=== PATIENT | female | born 1990 | race Caucasian/White ===

== ENCOUNTER 2018-03-16 18:53 | Emergency (ER) | payer OTHER ==
[2018-03-16 19:03] VITALS: BMI 26.2
--- NOTE | 2018-03-16 19:08 | PDOC ---
Rapid Medical Evaluation Chief Complaint: Pain Time Seen by Provider: 03/16/18 19:05 Medical Evaluation: Allergies Allergy/AdvReac Type Severity Reaction Status Date / Time No Known Allergies Allergy Verified 01/26/16 11:46 Vital Signs Temp Pulse Resp BP Pulse Ox 98.5 F 97 H 16 124/79 97 03/16/18 18:58 03/16/18 18:58 03/16/18 18:58 03/16/18 18:58 03/16/18 18:58 03/16/18 19:05 I have performed a brief in-person evaluation of this patient. The patient presents with a chief complaint of:left breast pain radiating to left shoulder and arm for 5 days. Denies cough, SOB, dizziness, fever, chills, sweats, N/V, palpitations , numbness or tingling sensation Pertinent physical exam findings: heart RRR. lungs CTAB I have ordered the following:ekg, uhcg The patient will proceed to the ED for further evaluation Discharge Disposition - Diagnosis Chest wall discomfort - Referrals - Patient Instructions - Post Discharge Activity
--- NOTE | 2018-03-16 20:44 | PDOC ---
History of Present Illness - General Chief Complaint: Pain Stated Complaint: CHEST PAIN Time Seen by Provider: 03/16/18 19:05 - History of Present Illness Initial Comments: The patient is a 27F w/ no reported PMH who presents for evaluation of 2 weeks of L breast pain that radiates towards her left arm. She describes the pain as constant but waxing/waning, described as cramping/squeezing, non-exertional, and worse with palpation. Denies fevers/chills, SOB, abdominal pain, N/V/C/D. Denies having pain like this before. Denies breast pain with menses. Has tried Advil with minimal relief. Denies trauma. 03/16/18 20:54 Past History - Past Medical History Allergies/Adverse Reactions: Allergies Allergy/AdvReac Type Severity Reaction Status Date / Time No Known Allergies Allergy Verified 03/16/18 20:50 Home Medications: Ambulatory Orders NK [No Known Home Medication] 01/26/16 Asthma: No Cancer: No Cardiac Disorders: No COPD: No Diabetes: No HTN: No Seizures: No Thyroid Disease: No - Immunization History Immunization Up to Date: Yes - Suicide/Smoking/Psychosocial Hx Smoking History: Never smoked Have you smoked in the past 12 months: No Number of Cigarettes Smoked Daily: 0 Hx Alcohol Use: No Drug/Substance Use Hx: No Substance Use Type: None Hx Substance Use Treatment: No Review of Systems - Review of Systems Able to Perform ROS?: Yes Comments:: GENERAL/CONSTITUTIONAL: No fever or chills. No weakness HEAD, EYES, EARS, NOSE AND THROAT: No change in vision. No ear pain or discharge. No sore throat CARDIOVASCULAR: No chest pain or shortness of breath GASTROINTESTINAL: No nausea, vomiting, diarrhea or constipation GENITOURINARY: No dysuria, frequency, or change in urination MUSCULOSKELETAL: +L breast/L arm pain SKIN: No rash NEUROLOGIC: No headache, vertigo, loss of consciousness, or change in strength/ sensation ENDOCRINE: No increased thirst. No abnormal weight change HEMATOLOGIC/LYMPHATIC: No anemia, easy bleeding, or history of blood clots ALLERGIC/IMMUNOLOGIC: No hives or skin allergy 03/16/18 21:02 Is the patient limited Iraqi proficient: No *Physical Exam - Vital Signs Last Vital Signs Temp Pulse Resp BP Pulse Ox 98.5 F 97 H 16 124/79 97 03/16/18 18:58 03/16/18 18:58 03/16/18 18:58 03/16/18 18:58 03/16/18 18:58 - Physical Exam Comments: GENERAL: Awake, alert, and fully oriented, in no acute distress HEAD: No signs of trauma, normocephalic, atraumatic EYES: PERRLA, EOMI, sclera anicteric, conjunctiva clear ENT: Hearing grossly normal, nares patent, oropharynx clear without exudates. Moist mucosa LUNGS: No distress, speaks full sentences, clear to auscultation bilaterally HEART: Regular rate and rhythm, normal S1 and S2, no murmurs appreciated, peripheral pulses normal and equal bilaterally ABDOMEN: Soft, nontender, normoactive bowel sounds. No guarding, no rebound EXTREMITIES : Normal inspection, Normal range of motion, no edema. No clubbing or cyanosis NEUROLOGICAL: Cranial nerves II through XII grossly intact. Normal speech, normal gait, no focal sensorimotor deficits SKIN: Warm, Dry, normal turgor, no rashes or lesions noted 03/16/18 21:03 Moderate Sedation - Procedure Monitoring Vital Signs: Procedure Monitoring Vital Signs Temperature 98.5 F 03/16/18 18:58 Pulse Rate 97 H 03/16/18 18:58 Respiratory Rate 16 03/16/18 18:58 Blood Pressure 124/79 03/16/18 18:58 O2 Sat by Pulse Oximetry (%) 97 03/16/18 18:58 ED Treatment Course - LABORATORY CBC & Chemistry Diagram: 03/16/18 21:00 03/16/18 21:00 - ADDITIONAL ORDERS Additional order review: Laboratory Results 03/16/18 19:30 Urine HCG, Qual Negative Medical Decision Making - Medical Decision Making Pt is a 27F with no reported PMH who presents for evaluation of 2 weeks of L breast and L arm pain ED Course CMP, CBC, cardiac enzymes ECG Tylenol 975mg PO once 03/16/18 21:03 No leukocytosis No anemia 03/16/18 21:27 No ARTURO LFTs wnl Trop I neg Lytes wnl 03/16/18 22:02 CXR Toradol 30mg IV once Patient with point tenderness over upper/medial breast at 11 o'clock position -likely costochondritis Patient reports symptoms improved; however continues to have point TTP Will give referral to breast surgeon/PCP for mammogram 03/16/18 22:13 CXR w/o evidence of PNA, PNX, or other acute pathology Plan for D/C w/ PCP and breast f/u Discharge instructions and return precautions given Dispo: Home 03/16/18 22:45 *DC/Admit/Observation/Transfer Diagnosis at time of Disposition: Chest wall discomfort - Discharge Dispostion Condition at time of disposition: Stable Decision to Admit order: No - Referrals Referrals: Jessica Otero MD [Primary Care Provider] - Guillermo Quintanilla MD [Staff Physician] - - Patient Instructions Printed Discharge Instructions: DI for Breast Pain (Mastalgia) - Post Discharge Activity
[2018-03-16] MEDS ORDERED: ACETAMINOPHEN 325 MG TABLET (FP) PO ONE (21:04)
[2018-03-16 21:08] LABS: BASO % 0.5 % (0-2.0); EOS % 1.5 % (0-4.5); HEMATOCRIT 41.7 % (32.4-45.2); HEMOGLOBIN 13.7 GM/dL (10.7-15.3); LYMPH % 22.1 % (8-40); MCH 26.3 pg (25.7-33.7); MCHC 32.9 g/dl (32.0-36.0); MEAN CELL VOLUME 80.1 fl (80-96); MEAN PLT VOLUME 9.8 fl (7.5-11.1); NEUT % 68.9 % (42.8-82.8); PLATELET COUNT 217 K/MM3 (134-434); RDW 13.5 % (11.6-15.6); WHITE BLOOD COUNT 11.1 K/mm3 (4.0-10.0)
[2018-03-16 21:42] LABS: ALBUMIN 3.9 g/dl (3.4-5.0); ALK PHOS 120 U/L (45-117); ANION GAP 9 MMOL/L (8-16); BILIRUBIN,TOTAL 0.7 mg/dL (0.2-1); BLOOD UREA NITROGEN 13 mg/dL (7-18); CALCIUM 8.4 mg/dL (8.5-10.1); CHLORIDE 109 mmol/L (98-107); CO2 23 mmol/L (21-32); CREATININE 0.7 mg/dL (0.55-1.3); GLUCOSE,RANDOM 70 mg/dL (74-106); SGPT/ALT 30 U/L (13-61); SODIUM 141 mmol/L (136-145); TOT PROT 7.4 g/dl (6.4-8.2)
[2018-03-16 21:43] LABS: POTASSIUM 3.9 mmol/L (3.5-5.1); SGOT/AST 25 U/L (15-37)
--- NOTE | 2018-03-16 21:48 | PDOC ---
Attending Attestation - HPI HPI: 03/16/18 22:18 The patient is a 27 year old female with no significant past medical history who presents to ED with 2 weeks of left sided breast pain. Patient reports waxing/waning left sided breast pain that radiates towards her left arm. She describes the pain as cramping/squeezing, non-exertional, and worse with palpation. She also reports one episode of white discharge from her left nipple. Patient took advil with minimal relief of present symptoms. Denies fever or chills. Denies chest pain or shortness of breath. Denies nausea , vomiting, diarrhea. Denies any other symptoms. - Physicial Exam PE: 03/16/18 22:19 Constitutional: Awake, alert, oriented. No acute distress. Head: Normocephalic. Atraumatic Eyes: PERRL. EOMI. Conjunctivae are not pale. ENT: Mucous membranes are moist and intact. Posterior pharynx without exudates or erythema. Uvula midline. Neck: Supple. Full ROM. No lymphadenopathy. Cardiovascular: Regular rate. Regular rhythm. S1, S2 regular. Distal pulses are 2+ and symmetric. Pulmonary/Chest: No evidence of respiratory distress. Clear to auscultation bilaterally No wheezing, rales or rhonchi. Breast: + Tenderness at the costochondral junction and at the beginning of breast tissue no palpable masses, heterogeneity of breast tissue on both sides. Abdominal: Soft and non-distended. There is no tenderness. No rebound, guarding or rigidity. No organomegaly. No palpable masses. Good bowel sounds. Back: No CVA tenderness. Musculoskeletal: No edema. No cyanosis. No clubbing. Full range of motion in all extremities. Nocalf tenderness. Radial/pedal pulses are intact and 2+ bilaterally Skin: Skin is warm and dry. No petechiae. No purpura. Neurological: Alert and oriented to person, place, and time. Cranial nerves II -XII are grossly intact. Normal speech. Strength is grossly symmetric. No sensory deficits. Psychiatric: Good eye contact. Normal interaction, affect and behavior. <Carson Sandoval - Last Filed: 03/16/18 22:18> - Resident Resident Name: Vinay Cheney - ED Attending Attestation I have performed the following: I have examined & evaluated the patient, The case was reviewed & discussed with the resident, I agree w/resident's findings & plan, Exceptions are as noted - Medical Decision Making 03/16/18 21:48 I, Dr. Izzy Ocasio DO, attest that this document has been prepared under my direction and personally reviewed by me in its entirety. I further attest, that it accurately reflects all work, treatment, procedures and medical decision -making performed by me. 03/16/18 22:47 a/p: 27yo female with L breast pain x 2 weeks -reproducible L breast pain also L costochondral ttp over L lateral breast 4th intercostal space -no redness, no rash -no discharge from nipple -will send labs, ekg, cxr -will need outpt follow up with breast - Dr. Frost and mammogram 03/16/18 22:48 cxr clear labs reviewed <Izzy Ocasio - Last Filed: 03/16/18 22:49> Heart Score/ECG Review - ECG Intrepretation Comment:: 03/16/18 22:48 sinus at 80, nl axis, nl interval, no acute st/t wave findings <Izzy Ocasio - Last Filed: 03/16/18 22:49> Attestations - Attestations 03/16/18 22:19 Documentation prepared by Carson Sandoval, acting as medical practice manager for Izzy Ocasio DO <Carson Sandoval - Last Filed: 03/16/18 22:18>
[2018-03-16] MEDS ORDERED: ACETAMINOPHEN 325 MG TABLET (FP) ONE (21:57)
[2018-03-16] MEDS ORDERED: KETOROLAC TROMETHAMINE 30 MG/1 ML VIAL IVPUSH ONE (22:11)
[2018-03-16] MEDS ORDERED: KETOROLAC TROMETHAMINE 30 MG/1 ML VIAL ONE (22:15)
[2018-03-16 23:31] VITALS: BP 111/65; PULSE 76; TEMP 97.8
--- NOTE | 2018-03-18 17:17 | EKG ---
Test Reason : Blood Pressure : / mmHG Vent. Rate : 080 BPM Atrial Rate : 080 BPM P-R Int : 110 ms QRS Dur : 074 ms QT Int : 380 ms P-R-T Axes : 056 040 046 degrees QTc Int : 438 ms SINUS RHYTHM WITH SHORT MD OTHERWISE NORMAL ECG NO PREVIOUS ECGS AVAILABLE Confirmed by MD RIRI, WHITNEY ([id number]) on 03/18/2018 5:17:13 PM Referred By: Confirmed By:WHITNEY MENEZES MD
== END 2018-03-16 23:19 | disposition home or self-care (01) ==
LOC: JERFT 18:53 → JER 18:53
PROC: 3E0333Z Introduction of Anti-inflammatory into Peripheral Vein, Percutaneous Approach (ICD-10-PCS; principal; 2018-03-16)
DX: R07.89 Other chest pain (principal)
CPT/HCPCS: 36415; 71045-TC-FY; 80053; 82550; 84484; 84703; 85025; 93005; 93010; 99283-25

== ENCOUNTER 2019-05-24 21:02 | Emergency (ER) | payer OTHER ==
[2019-05-24 21:42] VITALS: TEMP 98.1; BMI 27.8
--- NOTE | 2019-05-24 21:42 | PDOC ---
Rapid Medical Evaluation Chief Complaint: Palpitations Time Seen by Provider: 05/24/19 21:36 Medical Evaluation: Allergies Allergy/AdvReac Type Severity Reaction Status Date / Time No Known Allergies Allergy Verified 03/16/18 20:50 05/24/19 21:39 I have performed a brief in-person evaluation of this patient. The patient presents with a chief complaint of:palpitations./ left side body/ chest/ facial pain - was seen at clinic 2 days ago, told to get appts with Neuro and cardiology. No diagnosis Pertinent physical exam findings: A and O x3, takes daily [id number] daily I have ordered the following: EKG, cbc/ cmp/ The patient will proceed to the ED for further evaluation. Discharge Disposition - Diagnosis Palpitations - Discharge Dispostion Condition at time of disposition: Stable - Referrals - Patient Instructions - Post Discharge Activity
--- NOTE | 2019-05-24 21:55 | PDOC ---
History of Present Illness - General Chief Complaint: Palpitations Stated Complaint: HEADACHE Time Seen by Provider: 05/24/19 21:36 - History of Present Illness Initial Comments: 05/24/19 23:47 28 y/o F no sigificant medical hx, presents to the ER with 1 month of left sided numbness and tingling, and 1 week of left sided pain and headache. 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 She has had 9/ 10 burning pain on her left side with numbness. Prompted to come to ED today because of a 7 minute episode of vertigo and palpitations which occurred today and hasn't occured during the entire course of this illness. 05/24/19 23:49 Past History - Past Medical History Allergies/Adverse Reactions: Allergies Allergy/AdvReac Type Severity Reaction Status Date / Time No Known Allergies Allergy Verified 03/16/18 20:50 Home Medications: Ambulatory Orders NK [No Known Home Medication] 01/26/16 Asthma: No Cancer: No Cardiac Disorders: No COPD: No Diabetes: No HTN: No Seizures: No Thyroid Disease: No - Immunization History Immunization Up to Date: Yes - Psycho Social/Smoking Cessation Hx Smoking History: Never smoked Have you smoked in the past 12 months: No Number of Cigarettes Smoked Daily: 0 Information on smoking cessation initiated: No Hx Alcohol Use: No Drug/Substance Use Hx: No Substance Use Type: None Hx Substance Use Treatment: No Review of Systems - Review of Systems Constitutional: No: Chills, Fever HEENTM: No: Eye Pain, Blurred Vision Respiratory: No: Cough, Shortness of Breath Cardiac (ROS): Yes: Palpitations. No: Chest Pain ABD/GI: No: Constipated, Vomiting : No: Burning, Dysuria Musculoskeletal: Yes: Back Pain, Muscle Pain Integumentary: No: Bruising, Change in Color Neurological: Yes: Headache, Numbness *Physical Exam - Vital Signs Last Vital Signs Temp Pulse Resp BP Pulse Ox 98.1 F 92 H 20 151/99 99 05/24/19 21:36 05/24/19 21:36 05/24/19 21:36 05/24/19 21:36 05/24/19 21:36 - Physical Exam 05/24/19 23:34 GENERAL:Well developed, well nourished. Awake and alert. No acute distress. HEENT:Normocephalic, atraumatic. PERRLA, EOMI. No conjunctival pallor. Sclera are non-icteric. Moist mucous membranes. Oropharynx is clear. NECK: Supple. Full ROM. No JVD. Carotid pulses 2+ and symmetric, without bruits. No thyromegaly. No lymphadenopathy. CARDIOVASCULAR:Regular rate and rhythm. No murmurs, rubs, or gallops. Distal pulses are 2+ and symmetric. PULMONARY: No evidence of respiratory distress. Lungs clear to auscultation bilaterally. No wheezing, rales or rhonchi. ABDOMINAL:Soft. Non-tender. Non-distended. No rebound or guarding. No organomegaly. Normoactive bowel sounds. MUSCULOSKELETAL:Normal range of motion at all joints. No bony deformities, tenderness to palpation of left back, shoulder and left arm. no paraspinal tenderness. EXTREMITIES: No cyanosis. No clubbing. No edema. No calf tenderness. SKIN: Warm and dry. Normal capillary refill. No rashes. No jaundice. NEUROLOGICAL: Alert, awake, appropriate. Cranial nerves 2-12 intact. No deficits to light touch in face, upper extremities and lower extremities. No motor deficits in the face, upper extremities and lower extremities. Normal speech. Gait is normal without ataxia. no nystagmus on kary-hallpike PSYCHIATRIC: Cooperative. Good eye contact. Appropriate mood and affect. 05/24/19 23:44 ED Treatment Course - LABORATORY CBC & Chemistry Diagram: 05/24/19 21:53 05/24/19 21:54 Medical Decision Making - Medical Decision Making 05/24/19 23:48 28 y/o F no sigificant medical hx, presents to the ER with 1 month of left sided numbness and tingling, and 1 week of left sided pain and headache. cbc, cmp, ekg, esr, crp head ct w/o contrast Meds; tylenol, lidocaine patch, robaxin. 05/25/19 00:08 Signed out to night team Discharge - Discharge Information Problems reviewed: Yes Clinical Impression/Diagnosis: Paresthesias, Muscle spasm of back Headache Qualifiers: Headache type: unspecified Headache chronicity pattern: unspecified pattern Intractability: not intractable Qualified Code(s): R51 - Headache Condition: Stable Disposition: HOME - Follow up/Referral Referrals: Keshav Hinojosa MD [Staff Physician] - Jessica Otero MD [Primary Care Provider] - - Patient Discharge Instructions Patient Printed Discharge Instructions: DI for Headache, DI for Muscle Spasm Additional Instructions: Please take tylenol or motrin as needed for pain. Please make an appointment to see your PMD and the neurologist. Please return to the ER with any further concerns or complaint.s - Post Discharge Activity
[2019-05-24 22:08] LABS: BASO % 0.5 % (0-2.0); EOS % 1.6 % (0-4.5); HEMATOCRIT 39.8 % (32.4-45.2); HEMOGLOBIN 13.1 GM/dL (10.7-15.3); LYMPH % 27.1 % (8-40); MCH 26.7 pg (25.7-33.7); MEAN PLT VOLUME 9.4 fl (7.5-11.1); MONO % 7.6 % (3.8-10.2); NEUT % 63.2 % (42.8-82.8); PLATELET COUNT 211 K/MM3 (134-434); RBC 4.92 M/mm3 (3.60-5.2); RDW 13.4 % (11.6-15.6); WHITE BLOOD COUNT 9.6 K/mm3 (4.0-10.0)
[2019-05-24 22:48] LABS: ALBUMIN 3.8 g/dl (3.4-5.0); ALK PHOS 147 U/L (45-117); ANION GAP 5 MMOL/L (8-16); BILIRUBIN,TOTAL 0.4 mg/dL (0.2-1); BLOOD UREA NITROGEN 13.7 mg/dL (7-18); CALCIUM 8.7 mg/dL (8.5-10.1); CHLORIDE 108 mmol/L (98-107); CO2 28 mmol/L (21-32); CREATININE 0.7 mg/dL (0.55-1.3); GLUCOSE,RANDOM 88 mg/dL (74-106); POTASSIUM 3.7 mmol/L (3.5-5.1); SGOT/AST 21 U/L (15-37); SGPT/ALT 49 U/L (13-61); SODIUM 141 mmol/L (136-145); TOT PROT 7.1 g/dl (6.4-8.2)
[2019-05-24] MEDS ORDERED: SODIUM CHLORIDE 0.9% 1000 ML INFUS.BAG IV ONE (22:54)
[2019-05-24] MEDS ORDERED: ACETAMINOPHEN 1000 MG/100 ML VIAL (NON FORMULARY) IVPB ONE (22:54)
[2019-05-24] MEDS ORDERED: METOCLOPRAMIDE HCL INJECTION 10 MG/2 ML VIAL IVPUSH ONE (22:54)
[2019-05-24] MEDS ORDERED: METOCLOPRAMIDE HCL INJECTION 10 MG/2 ML VIAL ONE (23:06)
[2019-05-24] MEDS ORDERED: ACETAMINOPHEN INJECTION 100 ML IVPB ONE (23:07)
[2019-05-24] MEDS ORDERED: METHOCARBAMOL 500 MG TABLET PO ONE (23:11)
[2019-05-24] MEDS ORDERED: LIDOCAINE HCL 2% (20ML MULTI-DOSE VIAL) ONE (23:41)
--- NOTE | 2019-05-24 23:56 | PDOC ---
Documentation entered by Lui Hunter SCRIBE, acting as scribe for Izzy Ocasio DO. Izzy Ocasio DO: This documentation has been prepared by the Dale jacques Angel, SCRIBE, under my direction and personally reviewed by me in its entirety. I confirm that the documentation accurately reflects all work, treatment, procedures, and medical decision making performed by me. Attending Attestation - Resident Resident Name: [email or web address] - ED Attending Attestation I have performed the following: I have examined & evaluated the patient, The case was reviewed & discussed with the resident, I agree w/resident's findings & plan, Exceptions are as noted - HPI HPI: 05/24/19 23:30 The patient is a 28 year old female with no significant PMH who presents to the emergency department for 1 month of L sided numbness, tingling and pain, progressively getting worse the past week. Pt reports vertigo and chest palpitations that lasted for 7 minutes prompting her arrival to the ED. Pt is also experiencing dizziness, pain behind the eyes and unsteady gait. Pt saw her [employer] HEAD 3 days ago and was referred to a neurologist but has not received a call from the office yet. Patient denies any trauma, syncopal episodes, weakness or neurological deficits. The patient denies chest pain, shortness of breath and headache. Denies fever, chills, cough, nausea, vomiting, diarrhea and constipation. Allergies: NKDA PCP:Dr. Otero - Physicial Exam PE: 05/24/19 23:29 GENERAL: Awake, alert, and fully oriented, in no acute distress HEAD: No signs of trauma EYES: PERRLA, EOMI, sclera anicteric, conjunctiva clear NECK: Normal ROM, supple, no lymphadenopathy, JVD, or masses LUNGS: Breath sounds equal, clear to auscultation bilaterally. No wheezes, and no crackles HEART: Regular rate and rhythm, normal S1 and S2, no murmurs, rubs or gallops ABDOMEN: Soft, nontender, normoactive bowel sounds. No guarding, no rebound. No masses EXTREMITIES: Normal range of motion, no edema. No clubbing or cyanosis. No cords, erythema, or tenderness NEUROLOGICAL: Cranial nerves II through XII grossly intact. Sensory intact. + irritated paraspinal muscles. SKIN: Warm, Dry, normal turgor, lesions noted. - Medical Decision Making 05/24/19 23:55 a/p: 28yo female with L sided paresthesias x 1 month and L sided galloway -states vertigo and dizziness -L sided galloway and L sided numbness -no weakness -admits to feeling off balance for the past month with the paresthesias -neuro intact, sensation intact -will send labs, ekg, head ct -will give reglan, tylenol, ivf -will monitor and reassess 05/25/19 01:39 pt states feeling much better paresthesias and galloway resolved pt states she feels improved and wants to go home labs reviewed head ct without acute findings 05/25/19 01:40 pt stable for dc to home Discharge - Discharge Information Problems reviewed: Yes Clinical Impression/Diagnosis: Headache, Paresthesias, Muscle spasm of back Condition: Stable Disposition: HOME - Admission No - Follow up/Referral Referrals: Jessica Otero MD [Primary Care Provider] - Keshav Hinojosa MD [Staff Physician] - - Patient Discharge Instructions Patient Printed Discharge Instructions: DI for Headache, DI for Muscle Spasm Additional Instructions: Please take tylenol or motrin as needed for pain. Please make an appointment to see your PMD and the neurologist. Please return to the ER with any further concerns or complaint.s - Post Discharge Activity Heart Score/ECG Review - ECG Intrepretation Comment:: 05/24/19 23:54 sinsu at 73, nl axis, nl interval, no acute st/t wave findings
[2019-05-25] MEDS ORDERED: METHOCARBAMOL 500 MG TABLET ONE (00:23)
[2019-05-25 02:36] VITALS: BP 141/87; PULSE 84
--- NOTE | 2019-05-25 15:34 | EKG ---
Test Reason : Blood Pressure : / mmHG Vent. Rate : 073 BPM Atrial Rate : 073 BPM P-R Int : 130 ms QRS Dur : 090 ms QT Int : 386 ms P-R-T Axes : 089 046 054 degrees QTc Int : 425 ms NORMAL SINUS RHYTHM POSSIBLE LEFT ATRIAL ENLARGEMENT INCOMPLETE RBBB WHEN COMPARED WITH ECG OF 16-MAR-2018 19:08, NO SIGNIFICANT CHANGE WAS FOUND Confirmed by JUNIE JOHNSON MD ([id number]) on 05/25/2019 3:33:56 PM Referred By: Confirmed By:JUNIE JOHNSON MD
== END 2019-05-25 02:30 | disposition home or self-care (01) ==
LOC: JER 21:02 → JERBED 05-25 00:22 → UNDOADMIN 05-25 00:22 → JER 05-25 02:30
PROC: 3E033GC Introduction of Other Therapeutic Substance into Peripheral Vein, Percutaneous Approach (ICD-10-PCS; principal; 2019-05-24)
PROC: 3E033NZ Introduction of Analgesics, Hypnotics, Sedatives into Peripheral Vein, Percutaneous Approach (ICD-10-PCS; 2019-05-24)
DX: R51 Headache (principal); M62.830 Muscle spasm of back; R20.2 Paresthesia of skin
CPT/HCPCS: 36415; 70450-TC; 80053; 82550; 84484; 84703; 85025; 86140; 93005; 93010; 99283-25; J0131; J7030